=== PATIENT | male | born 1995 | race Caucasian/White ===

== ENCOUNTER → 2018-08-09 | Emergency (ER) | payer OTHER | END | disposition left against medical advice (07) | LOC: ER 12:47 | DX: Z53.20 Procedure and treatment not carried out because of patient's decision for unspecified reasons (principal) ==

== ENCOUNTER 2022-09-29 19:12 | Emergency (ER) | payer OTHER ==
[~2022-09-29] VITALS: Ht 162.6 cm; Wt 59.0 kg
== END 2022-09-29 21:54 | disposition home or self-care (01) ==
LOC: ER 19:12
DX: N20.1 Calculus of ureter (principal); Z91.013 Allergy to seafood; N20.0 Calculus of kidney